=== PATIENT | female | born 1965 | race Caucasian/White ===

== ENCOUNTER 2018-09-21 10:59 | Observation (INO) ==
[2018-09-21] MEDS ORDERED: Labetalol HCl Inj 100 MG/20 ML Vial IV.PUSH ONE (12:00)
[2018-09-21] MEDS ORDERED: Labetalol HCl Inj 100 MG/20 ML Vial ONE (12:14)
[2018-09-21 12:40] LABS: Baso # (Auto) 0.1 th/mm3 (0.0-0.2); Baso % (Auto) 0.9 % (0.0-2.0); Eos # (Auto) 0.2 th/mm3 (0.0-0.4); Eos % (Auto) 1.7 % (0.0-4.0); Hematocrit 44.1 % (35.0-46.0); Hemoglobin 15.2 gm/dL (11.6-15.3); Lymph # (Auto) 1.2 th/mm3 (1.0-4.8); Lymph % (Auto) 13.6 % (9.0-44.0); Mean Corpuscular HGB Conc 34.4 % (32.0-36.0); Mean Corpuscular Hemoglobin 31.6 pg (27.0-34.0); Mean Corpuscular Volume 91.7 fL (80.0-100.0); Mean Platelet Volume 10.2 fL (7.0-11.0); Mono # (Auto) 0.8 th/mm3 (0.0-0.9); Mono % (Auto) 8.5 % (0.0-8.0); Neut # (Auto) 6.8 th/mm3 (1.8-7.7); Neut % (Auto) 75.3 % (16.0-70.0); Platelet Count 190 th/mm3 (150-450); Red Blood Count 4.81 mil/mm3 (4.00-5.30); Red Cell Distribution Width 14.6 % (11.6-17.2); White Blood Count 9.1 th/mm3 (4.0-11.0)
[2018-09-21 13:05] LABS: Alanine Aminotransferase 33 U/L (10-53); Albumin 3.7 g/dL (3.4-5.0); Anion Gap 8 meq/L (5-15); Aspartate Aminotransferase 24 U/L (15-37); Blood Urea Nitrogen 11 mg/dL (7-18); Calcium 8.3 mg/dL (8.5-10.1); Carbon Dioxide 26.5 meq/L (21.0-32.0); Chloride 106 meq/L (98-107); Glomerular Filtration Rate Greater Than 89 mL/min (>89); Glucose,Random 109 mg/dL (74-106); Sodium 140 meq/L (136-145)
[2018-09-21 13:06] LABS: Alkaline Phosphatase 114 U/L (45-117); Total Protein 8.4 g/dL (6.4-8.2)
[2018-09-21] MEDS ORDERED: Acetaminophen 325 MG Tablet PO PRN (13:07)
[2018-09-21] MEDS ORDERED: Gadobutrol PF 10 MMOL/10 ML Vial (for RAD) IV.SIG ONE (13:41)
--- NOTE | 2018-09-21 13:48 | ED ---
HPI General Chief complaint: Recheck/Abnormal Lab/Rx Stated complaint: doc sent/vision Time Seen by Provider: 09/21/18 11:40 Source: patient Mode of arrival: ambulatory Limitations: no limitations History of Present Illness HPI narrative: Is a 53-year-old woman who presents to the emergency department complaining of blurry vision, referred by Dr. Avila, her leather patcher. She has a history of high blood pressure, poorly controlled. She just started a second medication for blood pressure a month ago but cannot recall the name. She had otherwise been feeling well before that. She is also been having long- standing blurry vision is been worsening over the past several month by her primary doctor to an leather patcher, whom she saw today. Upon evaluation she had palpable edema with markedly elevated blood pressure, 200/100, and thus referred to the emergency department. Related Data Home Medications Medication Instructions Recorded Confirmed nifedipine 90 mg PO DAILY 09/21/18 09/21/18 telmisartan 80 mg PO DAILY 09/21/18 09/21/18 Allergies Allergy/AdvReac Type Severity Reaction Status Date / Time No Known Allergies Allergy Verified 09/21/18 11:23 Review of Systems ROS: all other systems reviewed are negative [facility] Medical History Medical History HTN (hypertension) (Acute) Social History Social History Substance History: No History of Abuse Second Hand Smoke Exposure: Yes Smoking Status: Current every day smoker Tobacco Type: Cigarettes How Often Do You Have a Drink Containing Alcohol: 2 to 4 times a month Recent Travel in [facility] within the Last 8 Weeks: No Recent Out of Country Travel within the Last 8 Weeks: No Immunization History Tetanus Immunization: Unsure Exam Narrative Exam Narrative: GENERAL: Well-appearing 53-year-old woman, no acute distress per SKIN: Focused skin assessment warm/dry. HEAD: Atraumatic. Normocephalic. EYES: Pupils equal and round. No scleral icterus. No injection or drainage. ENT: No nasal bleeding or discharge. Mucous membranes pink and moist. Pupils are both dilated. She does have some blurring of the optic disc that is apparent. NECK: Trachea midline. No JVD. CARDIOVASCULAR: Regular rate and rhythm. No murmur appreciated. RESPIRATORY: No accessory muscle use. Clear to auscultation. Breath sounds equal bilaterally. GASTROINTESTINAL: Abdomen soft, non-tender, nondistended. Hepatic and splenic margins not palpable. MUSCULOSKELETAL: No obvious deformities. No edema. NEUROLOGICAL: Awake and alert. No obvious cranial nerve deficits. Motor grossly within normal limits. Normal speech. Course Initial Documented Vital Signs Temperature 97.9 F 09/21/18 11:12 Pulse Rate 84 09/21/18 11:12 Respiratory Rate 18 09/21/18 11:12 Blood Pressure 208/96 H 09/21/18 11:12 Pulse Oximetry 97 09/21/18 11:12 Last Documented Vital Signs Temperature 97.9 F 09/21/18 11:12 Pulse Rate 70 09/21/18 12:18 Respiratory Rate 18 09/21/18 11:12 Blood Pressure 168/77 H 09/21/18 12:22 Pulse Oximetry 98 09/21/18 11:23 Medical Decision Making MDM Narrative Medical decision making narrative: 53-year-old woman with papilledema, marked elevated blood pressure, concerning for malignant hypertension. Pseudotumor, or intracranial malignancy also possible. MRI ordered despite her concerning findings, symptoms are overall somewhat subacute. Spoke with Dr. Araujo, will recommend admission, blood pressure control, reassess. Medical Screen Exam Complete: Yes Emergency Medical Condition: Yes Lab Data Result diagrams: 09/21/18 12:15 09/21/18 12:15 Lab Results 09/21/18 09/21/18 Range/Units 12:15 12:15 WBC 9.1 (4.0-11.0) th/mm3 RBC 4.81 (4.00-5.30) mil/mm3 Hgb 15.2 (11.6-15.3) gm/dL Hct 44.1 (35.0-46.0) % MCV 91.7 (80.0-100.0) fL MCH 31.6 (27.0-34.0) pg MCHC 34.4 (32.0-36.0) % RDW 14.6 (11.6-17.2) % Plt Count 190 (150-450) th/mm3 MPV 10.2 (7.0-11.0) fL Neut % (Auto) 75.3 H (16.0-70.0) % Lymph % (Auto) 13.6 (9.0-44.0) % Vermilion % (Auto) 8.5 H (0.0-8.0) % Eos % (Auto) 1.7 (0.0-4.0) % Baso % (Auto) 0.9 (0.0-2.0) % Neut # (Auto) 6.8 (1.8-7.7) th/mm3 Lymph # (Auto) 1.2 (1.0-4.8) th/mm3 Vermilion # (Auto) 0.8 (0.0-0.9) th/mm3 Eos # (Auto) 0.2 (0.0-0.4) th/mm3 Baso # (Auto) 0.1 (0.0-0.2) th/mm3 WBC Differential . Differential Comment Auto diff final Sodium 140 (136-145) meq/L Potassium 4.0 (3.5-5.1) meq/L Chloride 106 (98-107) meq/L Carbon Dioxide 26.5 (21.0-32.0) meq/L Anion Gap 8 (5-15) meq/L BUN 11 (7-18) mg/dL Creatinine 0.69 (0.50-1.00) mg/dL Estimated GFR Greater than 89 (>89) mL/min Random Glucose 109 H (74-106) mg/dL Calcium 8.3 L (8.5-10.1) mg/dL Total Bilirubin 0.6 (0.2-1.0) mg/dL AST 24 (15-37) U/L ALT 33 (10-53) U/L Alkaline Phosphatase 114 (45-117) U/L Total Protein 8.4 H (6.4-8.2) g/dL Albumin 3.7 (3.4-5.0) g/dL Discharge Plan Discharge Disposition Patient Disposition: ED Admit(ED Internal Use Only) Discharge Order Discharge Orders: ED Use Only Admit Order (Routine); Ordered 09/21/18 Ordered By: Roger Carmichael Physicians Team ED Provider: Roger Carmichael Primary Care Provider: Vanessa Morris Attending Provider: Marky Araujo Discharge Interventions Interventions: Vital Signs Last Done: 09/21/18 12:22 Status ED Status: Admitted Patient
[2018-09-21] MEDS ORDERED: Enoxaparin Inj 40 MG/0.4 ML Syringe SQ SCH (14:00)
[2018-09-21 14:23] LABS: Free T4 (Free Thyroxine) 1.03 ng/dL (0.76-1.46); Thyroid Stimulating Hormone 3.18 uIU/mL (0.358-3.740)
--- NOTE | 2018-09-21 14:32 | XR ---
EXAM DATE: 09/21/2018 2:28 PM EST AGE/SEX: 53 years / Female INDICATIONS: Cough. CLINICAL DATA: This is the patient's initial encounter. Patient reports that signs and symptoms have been present for 1 day and indicates a pain score of 0/10. MEDICAL/SURGICAL HISTORY: None. None. COMPARISON: No prior exams available for comparison. FINDINGS: A single AP view of the chest demonstrates the lungs to be symmetrically aerated without evidence of mass, infiltrate or effusion. The heart size is at the upper limits of normal with no perihilar ora a. Osseous structures are intact. There are overlying electrocardiogram leads. CONCLUSION: No acute cardiopulmonary disease. There is no evidence of pneumonia. Electronically signed by: Rex Ordonez MD Board Certified Radiologist 09/21/2018 2:31 PM EST
--- NOTE | 2018-09-21 14:38 | MR ---
EXAM DATE: 09/21/2018 1:59 PM EST AGE/SEX: 53 years / Female INDICATIONS: Papilledema. CLINICAL DATA: This is the patient's initial encounter. Patient reports that signs and symptoms have been present for 1 day and indicates a pain score of 0/10. MEDICAL/SURGICAL HISTORY: Hypertension. None. COMPARISON: No prior exams available for comparison. TECHNIQUE: Multiplanar, multisequence MRI examination was performed without contrast and after intra venous administration of 10 ml Gadavist (gadobutrol) contrast and without contrast as single exam dos e. FINDINGS: Preseptal: The preseptal soft tissues are normal thickness. Globes: Normal shape without wall thickening. The lens is grossly intact. Extraocular Muscles: Symmetric and normal thickness. Orbital Storm: Intact. The greater wing of the sphenoid is intact. Optic Nerves: Normal size without abnormal areas of enhancement. The optic canal is not enlarged. The retroconal fat is normal in appearance. Lacrimal Glands: No evidence of mass. Retroapical Region: The optic chiasm is grossly intact. The visualized portion of the cavernous sin us and brainstem is intact. Brain: Old lacunar infarcts are noted within the central portion of the steph bilaterally. There is an old lacunar infarct involving the anterior limb of the left internal capsule. Old infarct is also no alex within left cerebellar hemisphere. Scattered periventricular and subcortical white matter small v essel ischemic changes are noted bilaterally. CONCLUSION: 1. Unremarkable MRI of the orbits. 2. Old lacunar infarcts are noted within the central portion of the steph bilaterally, the anterior l imb of the left internal capsule, and the left cerebellar hemisphere. 3. Scattered periventricular and subcortical white matter small vessel ischemic changes are noted bi laterally. Electronically signed by: Kelvin Owens MD Board Certified Radiologist 09/21/2018 2:37 PM EST
--- NOTE | 2018-09-21 17:02 | P.HPIM ---
History of Present Illness Primary Care Physician: Vanessa Morris MD Chief Complaint: "sent by eye doctor" History of Present Illness: This is a 53-year-old female with a past medical history which includes HTN. Patient presents to the emergency department complaining of blurry vision, referred by Dr. 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 She has a history of high blood pressure, poorly controlled. Patient just started a seconsd medication for blood pressure a month ago but cannot recall the name. She had otherwise been feeling well before that. She is also been having long-standing blurry vision is been worsening over the past several months, which propted her appointment earlier today. Upon evaluation she had palpable edema with markedly elevated blood pressure, 200/100, referred to the emergency department. Patient denies chest pain, SOB, fevers, chills, nausea, vomiting, diarrhea, headache or focal weakness. PMH: HTN, borderline DM PSxH: Patient denies FMH: father and brother in their 40s from heart disease Social History: ETOH use 2 to 4 times a month Tobacco use: 1/2 PPD since age 20 Denies illicit drug use Medications and Allergies Allergies Allergy/AdvReac Type Severity Reaction Status Date / Time No Known Allergies Allergy Verified 09/21/18 11:23 Active Medications: Active Medications Acetaminophen (Tylenol) 650 mg PO Q4H PRN PRN Reason: Temp > 100.4 Al Hydroxide/Mg Hydroxide (Milk Of Aida Hilton) 30 ml PO Q12H PRN PRN Reason: Mild Constipation Enalaprilat (Vasotec Inj) 1.25 mg IV.PUSH Q6H PRN PRN Reason: sbp above 160, Last Admin: 09/21/18 14:57 Dose: 1.25 mg Enoxaparin Sodium (Lovenox Inj) 40 mg SQ Q24H [facility] [place] Last Admin: 09/21/18 15:38 Dose: Not Given Nifedipine (Procardia Xl) 60 mg PO BID [facility] Last Admin: 09/21/18 14:27 Dose: 60 mg Ondansetron HCl (Zofran Inj) 4 mg IV.PUSH Q6H PRN PRN Reason: NAUSEA OR VOMITING Senna/Docusate Sodium (Carolina-Colace) 1 tab PO BID DUONG Sodium Chloride (Ns Flush) 2 ml IV.FLUSH BID DUONG Sodium Chloride (Ns Flush) 2 ml IV.FLUSH PRN PRN PRN Reason: FLUSH AFTER USING IV ACCESS Physical Exam Vital signs: Last Vital Signs Temp 97.9 F 09/21/18 11:12 Pulse 65 09/21/18 16:03 Resp 18 09/21/18 16:03 BP 158/73 H 09/21/18 16:03 Pulse Ox 97 09/21/18 16:03 Narrative: GENERAL: This is an obese, well-developed patient, in no apparent distress. SKIN: scattered ecchymosis madeline mid abdomen CARDIOVASCULAR: Regular rate and rhythm RESPIRATORY: Clear to auscultation. Breath sounds equal bilaterally. No wheezes , rales, or rhonchi. GASTROINTESTINAL: Abdomen soft, non-tender, nondistended. Normal active bowel sounds MUSCULOSKELETAL: Extremities without clubbing, cyanosis, or edema. NEURO: Alert & Oriented x4 to person, place, time, situation. Moves all ext x4 Results Labs CBC & Chem 7: 09/22/18 06:09 09/22/18 06:05 Caprini VTE Risk Assessment Caprini VTE Risk Assessment: Moderate/High Risk (score >= 2) Caprini Risk Assessment Model: Point Value = 1 Point Value = 2 Point Value = 3 Point Value = 5 Age 41-60 Minor surgery BMI > 25 kg/m2 Swollen legs Varicose veins or History of unexplained or recurrent spontaneous Oral contraceptives or hormone replacement Sepsis (< 1 month) Serious lung disease, including pneumonia (< 1 month) Abnormal pulmonary function Acute myocardial infarction Congestive heart failure (< 1 month) History of inflammatory bowel disease Medical patient at bed rest Age 61-74 Arthroscopic surgery Major open surgery (> 45 min) Laparoscopic surgery (> 45 min) Malignancy Confined to bed (> 72 hours) Immobilizing plaster cast Central venous access Age >= 75 History of VTE Family history of VTE Factor V Leiden Prothrombin [id number] Lupus anticoagulant Anticardiolipin antibodies Elevated serum homocysteine Heparin-induced thrombocytopenia Other congenital or acquired thrombophilia Stroke (< 1 month) Elective arthroplasty Hip, pelvis, or leg fracture Acute spinal cord injury (< 1 month) Prophylaxis Regimen: Total Risk Factor Score Risk Level Prophylaxis Regimen 0-1 Low Early ambulation 2 Moderate Order ONE of the following: *Sequential Compression Device (SCD) *Heparin 5000 units SQ BID 3-4 Higher Order ONE of the following medications: *Heparin 5000 units SQ TID *Enoxaparin/Lovenox 40 mg SQ daily (WT < 150 kg, CrCl > 30 mL/min) *Enoxaparin/Lovenox 30 mg SQ daily (WT < 150 kg, CrCl > 10-29 mL/min) *Enoxaparin/Lovenox 30 mg SQ BID (WT < 150 kg, CrCl > 30 mL/min) AND/OR *Sequential Compression Device (SCD) 5 or more Highest Order ONE of the following medications: *Heparin 5000 units SQ TID (Preferred with Epidurals) *Enoxaparin/Lovenox 40 mg SQ daily (WT < 150 kg, CrCl > 30 mL/min) *Enoxaparin/Lovenox 30 mg SQ daily (WT < 150 kg, CrCl > 10-29 mL/min) *Enoxaparin/Lovenox 30 mg SQ BID (WT < 150 kg, CrCl > 30 mL/min) AND *Sequential Compression Device (SCD) Assessment and Plan Plan This is a 53-year-old female with a past medical history which includes HTN and noncompliance. Patient presents to the emergency department complaining of blurry vision, referred by Dr. 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 She has a history of high blood pressure, poorly controlled. Patient just started a second medication for blood pressure a month ago but cannot recall the name. She had otherwise been feeling well before that. She is also been having long-standing blurry vision is been worsening over the past several months, which prompted her appointment earlier today. Upon evaluation she had palpable edema with markedly elevated blood pressure, 200/100, referred to the emergency department. Patient denies chest pain, SOB, fevers, chills, nausea, vomiting, diarrhea, headache or focal weakness. HTN urgency On arrival to the ER BP was 208/96 Patient started on nifedipine 60 mg PO BID blood pressure improved to 158/73 Per patient's home medication reconciliation patient takes nifedipine 90 mg PO daily and telmisartan 80 mg PO daily. ? noncompliance Chest X-Ray 09/21/18No acute cardiopulmonary disease. There is no evidence of pneumonia. Orbit MRI 09/21/18 1. Unremarkable MRI of the orbits. 2. Old lacunar infarcts are noted within the central portion of the steph bilaterally, the anterior limb of the left internal capsule, and the left cerebellar hemisphere. 3. Scattered periventricular and subcortical white matter small vessel ischemic changes are noted bilaterally. Continue to monitor BP Echocardiogram troponin CBC, BMP and Mag in AM TSH 3.18, free T4 1.03 Cortisol level in AM DVT prophylaxis with SCDs Attending Attestation The exam, history, and the medical decision-making described in the above note were completed with the assistance of the mid-level provider. I reviewed and agree with the findings presented. I attest that I had a [id number] encounter with the patient on the same day, and personally performed and documented my assessment and findings in the medical record. Patient examined. Assessment and plan formulated with Tri Orozco PA-C. I agree with the above.
[2018-09-21] MEDS ORDERED: Enoxaparin Inj 40 MG/0.4 ML Syringe SQ ONE (18:30)
[2018-09-21 18:43] LABS: Bacteria,Urine Rare /hpf; Bilirubin,Urine Negative (Negative); Clarity,Urine Clear (Clear); Color,Urine Yellow (Yellw/Straw); Glucose,Urine (UA) Negative (Negative); Hyaline Casts,Urine 1 /lpf (0-3); Leukocyte Esterase,Urine Negative (Negative); Mucus,Urine Few /lpf (Occasional); Nitrite,Urine Negative (Negative); Specific Gravity,Urine 1.013 (1.002-1.035); Squamous Epithelial Cell,Urine 1 /hpf (0-5)
[2018-09-21] MEDS: Senna/Docusate Sodium 8.6/50 MG Tablet PO SCH (20:14)
[2018-09-21 20:23] LABS: Activated Partial Thrombo Time 31.2 sec (23.4-31.7); Prothrombin Time 10.5 sec (9.8-11.6)
[2018-09-22 07:27] LABS: Baso # (Auto) 0.1 th/mm3 (0.0-0.2); Baso % (Auto) 0.8 % (0.0-2.0); Eos # (Auto) 0.1 th/mm3 (0.0-0.4); Eos % (Auto) 1.6 % (0.0-4.0); Hematocrit 42.9 % (35.0-46.0); Hemoglobin 14.6 gm/dL (11.6-15.3); Lymph # (Auto) 1.7 th/mm3 (1.0-4.8); Lymph % (Auto) 17.7 % (9.0-44.0); Mean Corpuscular Hemoglobin 30.8 pg (27.0-34.0); Mean Corpuscular Volume 90.6 fL (80.0-100.0); Mean Platelet Volume 10.1 fL (7.0-11.0); Mono # (Auto) 0.7 th/mm3 (0.0-0.9); Mono % (Auto) 6.9 % (0.0-8.0); Platelet Count 200 th/mm3 (150-450); Red Blood Count 4.73 mil/mm3 (4.00-5.30); Red Cell Distribution Width 14.3 % (11.6-17.2); White Blood Count 9.6 th/mm3 (4.0-11.0)
[2018-09-22 07:34] LABS: Activated Partial Thrombo Time 28.9 sec (23.4-31.7); Prothrombin Time 10.1 sec (9.8-11.6)
[2018-09-22 07:52] LABS: Albumin 3.3 g/dL (3.4-5.0); Anion Gap 7 meq/L (5-15); Aspartate Aminotransferase 15 U/L (15-37); Blood Urea Nitrogen 11 mg/dL (7-18); Carbon Dioxide 25.8 meq/L (21.0-32.0); Chloride 107 meq/L (98-107); Glomerular Filtration Rate Greater Than 89 mL/min (>89); Glucose,Random 100 mg/dL (74-106); Potassium 3.8 meq/L (3.5-5.1); Sodium 140 meq/L (136-145)
[2018-09-22 07:56] LABS: Alanine Aminotransferase 29 U/L (10-53); Alkaline Phosphatase 103 U/L (45-117); Total Protein 7.5 g/dL (6.4-8.2); Troponin I 0.06 ng/mL (0.02-0.05)
[2018-09-22] MEDS: Senna/Docusate Sodium 8.6/50 MG Tablet PO SCH (08:12)
--- NOTE | 2018-09-22 12:33 | ECHRPT ---
Indication: Cardiomyopathy CONCLUSIONS Normal left ventricular size. Mild concentric left ventricular hypertrophy. The left ventricular systolic function is normal with an estimated ejection fraction in the range of 55-60%. BP: / HR: Rhythm: MEASUREMENTS (Male / Female) Normal Values Technical Quality:Technically difficult study 2D ECHO LV Diastolic Diameter PLAX 4.0 cm 4.2 - 5.9 / 3.9 - 5.3 cm LV Systolic Diameter PLAX 2.5 cm IVS Diastolic Thickness 1.2 cm 0.6 - 1.0 / 0.6 - 0.9 cm LVPW Diastolic Thickness 1.2 cm 0.6 - 1.0 / 0.6 - 0.9 cm LV Relative Wall Thickness 0.6 RV Internal Dim ED PLAX 3.6 cm LVOT Diameter 2.2 cm Aortic Root Diameter 3.3 cm LA Systolic Diameter LX 3.5 cm 3.0 - 4.0 / 2.7 - 3.8 cm M-MODE AV Cusp Separation MM 2.1 cm DOPPLER AV Peak Velocity 172.0 cm/s AV Peak Gradient 11.8 mmHg LVOT Peak Velocity 158.0 cm/s LVOT Peak Gradient 10.0 mmHg AV Area Cont Eq pk 3.5 cm Mitral E Point Velocity 62.7 cm/s Mitral A Point Velocity 92.3 cm/s Mitral E to A Ratio 0.7 LV E' Lateral Velocity 6.9 cm/s Mitral E to LV E' Lateral Ratio 9.1 LV E' Septal Velocity 6.3 cm/s Mitral E to LV E' Septal Ratio 9.9 PV Peak Velocity 132.0 cm/s PV Peak Gradient 7.0 mmHg FINDINGS LEFT VENTRICLE Normal left ventricular size. Mild concentric left ventricular hypertrophy. The left ventricular systolic function is normal with an estimated ejection fraction in the range of 55-60%. RIGHT VENTRICLE Normal right ventricular size and systolic function. LEFT ATRIUM The left atrial size is normal. RIGHT ATRIUM The right atrial size is normal. ATRIAL SEPTUM Normal atrial septal thickness without atrial level shunting by limited color doppler interrogation. AORTA The aortic root and proximal ascending aorta are normal in size on limited imaging. MITRAL VALVE Structurally normal mitral valve. No mitral valve stenosis or regurgitation. AORTIC VALVE Trileaflet aortic valve. No aortic valve stenosis or regurgitation. TRICUSPID VALVE Structurally normal tricuspid valve. No tricuspid valve stenosis or regurgitation. PULMONARY VALVE The pulmonary valve is not well visualized. VESSELS The inferior vena cava is normal in size. PERICARDIUM No pericardial effusion. Ceferino Chamberlain (Electronically Signed) Final Date:22 September 2018 12:32
--- NOTE | 2018-09-22 15:15 | P.PNIM ---
Subjective Interval history: Patient reports feeling better today looking forward to [place] home Physical Exam Vital signs: Last Vital Signs Temp 98.4 F 09/22/18 11:52 Pulse 74 09/22/18 11:52 Resp 18 09/22/18 11:52 BP 147/68 H 09/22/18 11:52 Pulse Ox 92 L 09/22/18 11:52 Narrative: GENERAL: This is an obese, well-developed patient, in no apparent distress. SKIN: scattered ecchymosis madeline mid abdomen CARDIOVASCULAR: Regular rate and rhythm RESPIRATORY: Clear to auscultation. Breath sounds equal bilaterally. No wheezes , rales, or rhonchi. GASTROINTESTINAL: Abdomen soft, non-tender, nondistended. Normal active bowel sounds MUSCULOSKELETAL: Extremities without clubbing, cyanosis, or edema. NEURO: Alert & Oriented x4 to person, place, time, situation. Moves all ext x4 Results Labs CBC & Chem 7: 09/22/18 06:09 09/22/18 06:05 Assessment and Plan Plan This is a 53-year-old female with a past medical history which includes HTN and noncompliance. Patient presents to the emergency department complaining of blurry vision, referred by Dr. Avila, her certified nursing assistant. She has a history of high blood pressure, poorly controlled. Patient just started a second medication for blood pressure a month ago but cannot recall the name. She had otherwise been feeling well before that. She is also been having long-standing blurry vision is been worsening over the past several months, which prompted her appointment earlier today. Upon evaluation she had palpable edema with markedly elevated blood pressure, 200/100, referred to the emergency department. Patient denies chest pain, SOB, fevers, chills, nausea, vomiting, diarrhea, headache or focal weakness. HTN urgency - improved On arrival to the ER BP was 208/96 Patient started on nifedipine 60 mg PO BID blood pressure improved to 158/73 Per patient's home medication reconciliation patient takes nifedipine 90 mg PO daily and telmisartan 80 mg PO daily. ? noncompliance Chest X-Ray 09/21/18No acute cardiopulmonary disease. There is no evidence of pneumonia. Orbit MRI 09/21/18 1. Unremarkable MRI of the orbits. 2. Old lacunar infarcts are noted within the central portion of the steph bilaterally, the anterior limb of the left internal capsule, and the left cerebellar hemisphere. 3. Scattered periventricular and subcortical white matter small vessel ischemic changes are noted bilaterally. MRI results discussed with patient and friend in room Continue to monitor BP Echocardiogram : Normal left ventricular size. Mild concentric left ventricular hypertrophy. The left ventricular systolic function is normal with an estimated ejection fraction in the range of 55-60%. troponin 0.06, 0.06 - flat pattern CBC, BMP and Mag reviewed and stable TSH 3.18, free T4 1.03 Cortisol level this am 6.9 DVT prophylaxis with SCDs Dr. Araujo discussed case with Dr. Avila. Dr. Avila would like for patient to have LP. Patient received Lovenox injection 09/21/18 @ 1845 therefore patient will not be able to have LP today. Will DC patient home to return to have outpatient LP. Outpatient LP scheduled 09/28/[address] Avila. Patient DC home in stable condition on heart healthy diet with no activity restrictions. New medications include Cozaar 50 mg PO BID and Nifedipine 60 mg PO BID. previous home medication nifedipine 90 mg PO daily and telmisartan 80 mg PO daily stopped. Patient also to follow up with PCP and Dr. Avila. Attending Attestation The exam, history, and the medical decision-making described in the above note were completed with the assistance of the mid-level provider. I reviewed and agree with the findings presented. I attest that I had a [id number] encounter with the patient on the same day, and personally performed and documented my assessment and findings in the medical record. Patient examined. Assessment and plan formulated with Tri Orozco PA-C. I agree with the above. Progress Note: Quality VTE Deep Vein Thrombosis/Pulmonary Embolism Present on Admission: No
--- NOTE | 2018-09-22 16:00 | ECG ---
Date Performed: 09/21/2018 Time Performed: 12:39:48 PTAGE: 53 years EKG: Sinus rhythm LEFT VENTRICULAR HYPERTROPHY AND ST-T CHANGE ABNORMAL ECG Compared to PREVIOUS TRACING , the LVH with secondary ST-T changes are new. PREVIOUS TRACIN 012 01.02 DOCTOR: Bryan Ansari Interpretating Date/Time 09/22/2018 16:00:01
[2018-09-22 16:11] VITALS: PULSE 78; RESP 16; TEMP 98.1; O2SAT 96
[2018-09-22 16:21] VITALS: BP 146/80
[2018-09-22] MEDS ORDERED: Enoxaparin Inj 40 MG/0.4 ML Syringe SQ SCH (18:00)
== END 2018-09-22 17:43 | disposition home or self-care (01) ==
LOC: NEPE 10:59 → INTOOBSV 13:24 → NEDA 13:24 → NEPFCDU 16:53
PROVIDERS: ADMIT Hospitalist; ATTEND Hospitalist